=== PATIENT | female | born 1980 | race Caucasian/White ===

== ENCOUNTER 2018-06-11 14:43 | Emergency (ER) | payer MEDICAID ==
[~2018-06-11] VITALS: Ht 149.9 cm; Wt 56.0 kg
[~2018-06-11 14:43] MED LIST: BP MED PO; CLONAZEPAM PO; CYCL-1 PO; ONDA4TAB6 PO; RANI-366 PO; ZOLOFT PO; ZYRTEC OTC
[2018-06-11 15:10] VITALS: BP 146/95
[2018-06-11] MEDS ORDERED: NICO-687 TOP (15:29)
[2018-06-11] MEDS ORDERED: OMEP40CA37 PO (15:29)
== END 2018-06-11 15:31 | disposition home or self-care (01) ==
LOC: ER 14:43
DX: F15.10 Other stimulant abuse, uncomplicated (principal); I10 Essential (primary) hypertension; Z86.19 Personal history of other infectious and parasitic diseases; Z98.890 Other specified postprocedural states; Z88.6 Allergy status to analgesic agent; Z88.8 Allergy status to other drugs, medicaments and biological substances; Z79.899 Other long term (current) drug therapy
CPT/HCPCS: 99283

== ENCOUNTER 2018-07-14 20:50 | Emergency (ER) | payer MEDICAID ==
[~2018-07-14] VITALS: Ht 149.9 cm; Wt 49.0 kg
[2018-07-14 21:03] VITALS: BP 164/106
[2018-07-15] MEDS ORDERED: acetaminophen 325mg tablet PO ONE (00:45)
== END 2018-07-15 00:53 | disposition home or self-care (01) ==
LOC: ER 20:53
DX: O99.512 Diseases of the respiratory system complicating pregnancy, second trimester (principal); J06.9 Acute upper respiratory infection, unspecified; I10 Essential (primary) hypertension; F17.200 Nicotine dependence, unspecified, uncomplicated; Z90.89 Acquired absence of other organs; Z88.8 Allergy status to other drugs, medicaments and biological substances; Z79.899 Other long term (current) drug therapy; Z3A.16 16 weeks gestation of pregnancy
CPT/HCPCS: 93005; 99283

== ENCOUNTER 2018-09-18 13:51 | Emergency (ER) | payer MEDICAID ==
[~2018-09-18] VITALS: Ht 149.9 cm; Wt 145.0 kg
[2018-09-18 16:18] VITALS: BP 120/80
== END 2018-09-18 16:19 | disposition home or self-care (01) ==
LOC: ER 13:52
DX: O26.891 Other specified pregnancy related conditions, first trimester (principal); N76.4 Abscess of vulva; O16.1 Unspecified maternal hypertension, first trimester; Z3A.10 10 weeks gestation of pregnancy; Z86.19 Personal history of other infectious and parasitic diseases; Z87.442 Personal history of urinary calculi; Z98.890 Other specified postprocedural states; Z88.8 Allergy status to other drugs, medicaments and biological substances; Z79.899 Other long term (current) drug therapy
CPT/HCPCS: 56405; 99284

== ENCOUNTER 2019-10-27 12:03 | Emergency (ER) | payer MEDICAID ==
[~2019-10-27] VITALS: Ht 149.9 cm; Wt 67.3 kg
[2019-10-27 12:17] VITALS: BP 142/76
== END 2019-10-27 13:41 | disposition home or self-care (01) ==
LOC: ER 12:03
DX: M79.601 Pain in right arm (principal); I10 Essential (primary) hypertension; Z86.19 Personal history of other infectious and parasitic diseases; Z87.442 Personal history of urinary calculi; Z90.89 Acquired absence of other organs; Z88.6 Allergy status to analgesic agent; Z88.8 Allergy status to other drugs, medicaments and biological substances; Z79.899 Other long term (current) drug therapy
CPT/HCPCS: 99282

== ENCOUNTER 2020-10-06 16:44 | Emergency (ER) | payer MEDICAID ==
[~2020-10-06] VITALS: Ht 149.9 cm; Wt 61.4 kg
[2020-10-06] MEDS ORDERED: normal saline 1000ML IV soln IVB STA (16:47)
[2020-10-06] MEDS ORDERED: diphenhydrAMINE 50 mg/ml inj IV ONE (16:50)
[2020-10-06] MEDS ORDERED: methylPREDNISolone sod succ 125mg/2ml vial IV ONE (16:50)
[2020-10-06] MEDS ORDERED: famotidine/PF 10 mg/ml inj IV ONE (16:50)
[2020-10-06] MEDS ORDERED: epiNEPHrine 1 mg/ml inj SQ ONE (16:50)
[2020-10-06] MEDS ORDERED: LORazepam 2 mg/ml vial ONE (16:57)
[2020-10-06 17:04] LABS: BASOPHILS # (AUTO) 0.1 X10'3 (0-0.2); BASOPHILS % (AUTO) 1.1 % (0-1); EOSINOPHILS # (AUTO) 0.7 X10'3 (0-0.9); EOSINOPHILS % (AUTO) 4.9 % (0-6); HEMATOCRIT 39.9 % (35.0-45.0); HEMOGLOBIN 13.2 g/dl (12.0-16.0); LYMPHOCYTES # (AUTO) 4.4 X10'3 (1.1-4.8); LYMPHOCYTES % (AUTO) 32.4 % (21-51); MEAN CORPUSCULAR VOLUME 87.8 FL (78-98); MEAN PLATELET VOLUME 7.7 FL (7.4-10.4); MONOCYTES # (AUTO) 1.3 X10'3 (0-0.9); MONOCYTES % (AUTO) 9.5 % (2-12); NEUTROPHILS # (AUTO) 7.1 X10'3 (1.8-7.7); NEUTROPHILS % (AUTO) 52.1 % (42-75); PLATELET COUNT 298 X10'3 (140-440); RED BLOOD COUNT 4.55 X10'6 (4.20-5.60); RED CELL DISTRIBUTION WIDTH 13.4 % (11.5-14.5); WHITE BLOOD COUNT 13.5 X10'3 (4.5-11.0)
[2020-10-06] MEDS ORDERED: EPIN0.3P3 IM (18:06)
[2020-10-06] MEDS ORDERED: PRED20TA PO (18:06)
[2020-10-06 18:21] LABS: ALANINE AMINOTRANSFERASE 25 U/L (12-78); ALBUMIN 3.8 G/DL (3.4-5.0); ALBUMIN/GLOBULIN RATIO 1.2 (1.1-1.5); ALKALINE PHOSPHATASE 86 IU/L (46-116); ANION GAP 13 (8-16); ASPARTATE AMINO TRANSFERASE 12 U/L (10-37); BILIRUBIN,TOTAL 0.2 MG/DL (0.1-1.0); BLOOD UREA NITROGEN 11 MG/DL (7-18); BUN/CREATININE RATIO 12.9 (6.6-38.0); CHLORIDE 108 MMOL/L (99-107); CREATININE 0.85 MG/DL (0.40-0.90); GLUCOSE 138 MG/DL (70-104); POTASSIUM 3.3 MMOL/L (3.5-5.1); SODIUM 143 MMOL/L (135-145); TOTAL CARBON DIOXIDE 22.4 MMOL/L (24-32); TOTAL PROTEIN 7.1 G/DL (6.4-8.2); eGFR 74 ML/MIN
--- NOTE | 2020-10-06 18:24 | NUR ---
Patient resting in stretcher, states tightness in her throat is improved, only feeling weak at this time but much better. Encouraged that if she goes to the bathroom again we need a urine sample.
[2020-10-06 18:35] VITALS: BP 126/86
== END 2020-10-06 18:37 | disposition home or self-care (01) ==
LOC: ER 16:45
DX: T78.2XXA Anaphylactic shock, unspecified, initial encounter (principal); R06.02 Shortness of breath; Y92.89 Other specified places as the place of occurrence of the external cause
CPT/HCPCS: 36415; 80053; 85025; 93005; 96361; 96372; 96374; 96375; 99291; J0171; J1200; J2060; J2930; J3490; J7030

== ENCOUNTER 2022-08-19 08:43 | Emergency (ER) | payer MEDICAID ==
[~2022-08-19] VITALS: Ht 147.3 cm; Wt 72.7 kg
[~2022-08-19 08:43] MED LIST changes: +EPIN0.3P3 IM
[2022-08-19 08:59] VITALS: BP 152/98
[2022-08-19 09:06] LABS: BASOPHILS % (AUTO) 0.5 % (0-1); EOSINOPHILS # (AUTO) 0.5 X10'3 (0-0.9); HEMATOCRIT 36.8 % (35.0-45.0); HEMOGLOBIN 12.2 g/dl (12.0-16.0); LYMPHOCYTES # (AUTO) 2.3 X10'3 (1.1-4.8); LYMPHOCYTES % (AUTO) 23.4 % (21-51); MEAN CORPUSCULAR HEMOGLOBIN 27.9 PG (27.0-31.0); MEAN CORPUSCULAR HGB CONC 33.2 g/dL (33.0-36.5); MEAN CORPUSCULAR VOLUME 83.9 FL (78-98); MEAN PLATELET VOLUME 6.6 FL (7.4-10.4); MONOCYTES # (AUTO) 0.8 X10'3 (0-0.9); MONOCYTES % (AUTO) 8.6 % (2-12); NEUTROPHILS # (AUTO) 6.1 X10'3 (1.8-7.7); NEUTROPHILS % (AUTO) 62.5 % (42-75); PLATELET COUNT 257 X10'3 (140-440); RED BLOOD COUNT 4.39 X10'6 (4.20-5.60); RED CELL DISTRIBUTION WIDTH 14.8 % (11.5-14.5); WHITE BLOOD COUNT 9.8 X10'3 (4.5-11.0)
[2022-08-19 09:16] LABS: ALANINE AMINOTRANSFERASE 39 U/L (12-78); ALBUMIN 3.5 G/DL (3.4-5.0); ALKALINE PHOSPHATASE 87 IU/L (46-116); ANION GAP 9 (8-16); ASPARTATE AMINO TRANSFERASE 20 U/L (10-37); BILIRUBIN,TOTAL 0.3 MG/DL (0.1-1.0); BLOOD UREA NITROGEN 9 MG/DL (7-18); BUN/CREATININE RATIO 11.8 (10.0-20.0); CHLORIDE 103 MMOL/L (99-107); CREATININE 0.76 MG/DL (0.40-0.90); GLUCOSE 111 MG/DL (70-104); POTASSIUM 3.5 MMOL/L (3.5-5.1); SODIUM 137 MMOL/L (135-145); TOTAL CARBON DIOXIDE 25.5 MMOL/L (24-32); eGFR 83 ML/MIN
[2022-08-19] MEDS ORDERED: triamcinolone acetonide 40mg/ml inj IM ONE (10:35)
[2022-08-19] MEDS ORDERED: GUAI400T92 PO (10:39)
[2022-08-19] MEDS ORDERED: ALBU8HFA PO (10:39)
[2022-08-19] MEDS ORDERED: FLUT16SP2 BOTHNARES (10:39)
[2022-08-19] MEDS ORDERED: BENZ-38 PO (10:39)
== END 2022-08-19 11:07 | disposition home or self-care (01) ==
LOC: ER 08:44
DX: R07.89 Other chest pain (principal); R05.9 Cough, unspecified; R06.02 Shortness of breath; F15.90 Other stimulant use, unspecified, uncomplicated; I10 Essential (primary) hypertension; Z87.442 Personal history of urinary calculi; Z90.49 Acquired absence of other specified parts of digestive tract; Z79.899 Other long term (current) drug therapy; Z98.51 Tubal ligation status; Z88.6 Allergy status to analgesic agent; Z88.8 Allergy status to other drugs, medicaments and biological substances
CPT/HCPCS: 36415; 71045; 80053; 83735; 83880; 84484; 85025; 93005; 96372; 99285; J3301

== ENCOUNTER 2022-10-22 19:12 | Emergency (ER) | payer MEDICAID ==
[~2022-10-22] VITALS: Ht 162.6 cm; Wt 67.0 kg
[~2022-10-22 19:12] MED LIST changes: +FLUT16SP2 BOTHNARES; +GUAI400T92 PO
[2022-10-22 19:32] VITALS: BP 132/94
[2022-10-22] MEDS ORDERED: AMOX-117 PO (21:16)
[2022-10-22] MEDS ORDERED: dexamethasone sod phosphate 10mg/ml inj PO STA (21:16)
[2022-10-22] MEDS ORDERED: BENZ1LOZ74 PO (21:16)
[2022-10-22] MEDS ORDERED: amox tr/potassium clavulanate 875/125mg TAB PO ONE (21:20)
== END 2022-10-22 22:03 | disposition home or self-care (01) ==
LOC: ER 19:13
DX: J03.90 Acute tonsillitis, unspecified (principal); H72.91 Unspecified perforation of tympanic membrane, right ear; I10 Essential (primary) hypertension; F15.20 Other stimulant dependence, uncomplicated; Z91.018 Allergy to other foods; Z88.8 Allergy status to other drugs, medicaments and biological substances
CPT/HCPCS: 99283; J1100

== ENCOUNTER 2022-10-25 11:35 | Emergency (ER) | payer MEDICAID ==
[~2022-10-25] VITALS: Ht 147.3 cm; Wt 71.4 kg
[~2022-10-25 11:35] MED LIST changes: +AMOX-117 PO; +BENZ1LOZ74 PO
[2022-10-25 12:20] LABS: BASOPHILS % (AUTO) 0.3 % (0-1); EOSINOPHILS # (AUTO) 0.1 X10'3 (0-0.9); EOSINOPHILS % (AUTO) 0.9 % (0-6); HEMATOCRIT 41.5 % (35.0-45.0); HEMOGLOBIN 13.7 g/dl (12.0-16.0); LYMPHOCYTES # (AUTO) 0.7 X10'3 (1.1-4.8); LYMPHOCYTES % (AUTO) 9.2 % (21-51); MEAN CORPUSCULAR HEMOGLOBIN 27.8 PG (27.0-31.0); MEAN CORPUSCULAR HGB CONC 33.1 g/dL (33.0-36.5); MEAN CORPUSCULAR VOLUME 84.1 FL (78-98); MEAN PLATELET VOLUME 7.1 FL (7.4-10.4); MONOCYTES # (AUTO) 0.7 X10'3 (0-0.9); MONOCYTES % (AUTO) 9.4 % (2-12); NEUTROPHILS # (AUTO) 6.3 X10'3 (1.8-7.7); NEUTROPHILS % (AUTO) 80.2 % (42-75); PLATELET COUNT 239 X10'3 (140-440); RED BLOOD COUNT 4.93 X10'6 (4.20-5.60); RED CELL DISTRIBUTION WIDTH 14.7 % (11.5-14.5); WHITE BLOOD COUNT 7.9 X10'3 (4.5-11.0)
[2022-10-25] MEDS ORDERED: ondansetron/PF 4mg/2ml inj IV ONE (12:35)
[2022-10-25] MEDS ORDERED: morphine 4 MG/ML inj SYRINge IV ONE (12:35)
[2022-10-25] MEDS ORDERED: normal saline 1000ML IV soln IVB ONE (12:35)
[2022-10-25 12:38] LABS: ALANINE AMINOTRANSFERASE 452 U/L (12-78); ALBUMIN 3.7 G/DL (3.4-5.0); ALBUMIN/GLOBULIN RATIO 1.1 (1.1-1.5); ALKALINE PHOSPHATASE 194 IU/L (46-116); ANION GAP 11 (8-16); ASPARTATE AMINO TRANSFERASE 459 U/L (10-37); BILIRUBIN,TOTAL 0.5 MG/DL (0.1-1.0); BLOOD UREA NITROGEN 10 MG/DL (7-18); BUN/CREATININE RATIO 11.6 (10.0-20.0); CHLORIDE 103 MMOL/L (99-107); CREATININE 0.86 MG/DL (0.40-0.90); GLUCOSE 109 MG/DL (70-104); LIPASE 64 U/L (73-393); POTASSIUM 3.4 MMOL/L (3.5-5.1); SODIUM 142 MMOL/L (135-145); TOTAL CARBON DIOXIDE 27.9 MMOL/L (24-32); TOTAL PROTEIN 7.2 G/DL (6.4-8.2); eGFR 72 ML/MIN
[2022-10-25 12:46] LABS: CALCIUM 8.5 MG/DL (8.5-10.1)
[2022-10-25 13:18] LABS: HCG SERUM QL NEGATIVE
[2022-10-25] MEDS ORDERED: iohexol 300mg/ml 100ml inj. ONE (13:20)
--- NOTE | 2022-10-25 13:28 | NUR ---
DEREJE CALERO OBATINED 20G IV BY US TO PT LEFT FOREARM. PT TAKEN TO CT.
[2022-10-25] MEDS ORDERED: ONDA4TAB12 PO (13:58)
[2022-10-25] MEDS ORDERED: HYDR-3965 PO (13:58)
--- NOTE | 2022-10-25 14:06 | NUR ---
PER DR PATEL NO NEED TO COLLECT PT URINE PRIOR TO DC.
--- NOTE | 2022-10-25 14:06 | NUR ---
PT DROVE TO ED. PT WILL CALL FOR TRANSPORTATION D/T SHE GOT MORPHINE.
[2022-10-25 14:08] VITALS: BP 120/82
== END 2022-10-25 14:21 | disposition home or self-care (01) ==
LOC: ER 11:35
DX: R11.2 Nausea with vomiting, unspecified (principal); R19.7 Diarrhea, unspecified; I10 Essential (primary) hypertension; Z87.442 Personal history of urinary calculi
CPT/HCPCS: 36415; 74177; 80053; 83690; 84703; 85025; 96361; 96374; 96375; 99285; J2270; J2405; J3490; J7030; Q9967

== ENCOUNTER 2023-10-12 11:14 | Outpatient (CLI) | payer MEDICAID ==
[~2023-10-12 11:14] MED LIST changes: -AMOX-117 PO; +ONDA4TAB12 PO
== END 2023-10-12 23:59 | disposition home or self-care (01) ==
LOC: RAD 11:14
PROVIDERS: ATTEND Family Medicine
DX: R10.9 Unspecified abdominal pain (principal); Z90.49 Acquired absence of other specified parts of digestive tract
CPT/HCPCS: 76700